=== PATIENT | male | born 1935 | race Caucasian/White ===

== ENCOUNTER 2016-12-03 11:38 | Day surgery (SDC) | payer BC ==
[2016-12-03 12:19] LABS: BASO % 0.3 % (0-6); EOS % 1.8 % (0-6); GRAN % 71.2 % (47-80); HEMOGLOBIN 15.4 gm/dl (14.0-18.0); LYMPH % 17.5 % (16-45); MEAN CELL VOLUME 94.8 fl (81-97); MEAN CORPUSCULAR HEMOGLOBIN 31.8 pg (27-33); MEAN CORPUSCULAR HGB CONC 33.5 g/dl (32-36); MEAN PLATELET VOLUME 11.2 fl (7.4-10.4); MONO % 9.2 % (0-9); PLATELET COUNT 205 K/uL (130-400); RED BLOOD COUNT 4.85 M/uL (4.40-5.70); RED CELL DISTRIBUTION WIDTH 13.3 % (11.5-14.5); WHITE BLOOD COUNT W/O DIFF 7.2 K/uL (4.2-12.2)
[2016-12-03 12:37] LABS: ALB/GLOB RATIO 1.3 (1.1-1.8); ALBUMIN 3.8 g/dL (4.0-5.0); ALKALINE PHOSPHATASE 69 U/L (40-129); ALT/SGPT 26 U/L (<41); AST/SGOT 22 U/L (10.0-50.0); BLOOD UREA NITROGEN 14 mg/dL (8-23); EST GLOMERULAR FILTRATION RATE > 60 mL/min; GLUCOSE,RANDOM 118 mg/dL (74-109); TOTAL PROTEIN 6.7 g/dL (6.6-8.7)
[2016-12-03] MEDS ORDERED: PROPOFOL 10 MG/ML VIAL IV ONE (15:48)
[2016-12-03] MEDS ORDERED: LIDOCAINE 2% MDV (20MG/ML) 20ML VIAL IV ONE (15:48)
--- NOTE | 2016-12-04 15:02 | Operative Note ---
DATE OF PROCEDURE: 12/03/16 PRIMARY CARE PHYSICIAN: DR. NEREIDA FRITZ OPERATING PHYSICIAN: CLIFTON GARCIA M.D. INDICATIONS: PAROXYSMAL ATRIAL FIBRILLATION. PROCEDURE DESCRIPTION: Mr. Ascencio was brought into the Cardioversion Room in a fasting state. The defibrillation pads were applied in the anteroposterior position. Anesthesia was administered and a synchronized direct current of 100 joules of biphasic energy was used, which was successful in cardioverting him into an atrial paced rhythm. IMPRESSION: SUCCESSFUL DIRECT CURRENT CARDIOVERSION WITH 100 JOULES OF BIPHASIC ENERGY. JOB NUMBER: [id number] MTDD
== END 2016-12-03 14:15 | disposition home or self-care (01) ==
LOC: SUR 11:38
PROVIDERS: ATTEND Internal Medicine
DX: I48.0 Paroxysmal atrial fibrillation (principal); I50.9 Heart failure, unspecified; I10 Essential (primary) hypertension; Z95.0 Presence of cardiac pacemaker; E78.00 Pure hypercholesterolemia, unspecified; Z79.01 Long term (current) use of anticoagulants; Z87.891 Personal history of nicotine dependence
CPT/HCPCS: 80053; 85025; 93005

== ENCOUNTER 2017-01-14 11:20 | Day surgery (SDC) | payer BC ==
[2017-01-14] MEDS ORDERED: PROPOFOL 10 MG/ML VIAL IV ONE (11:21)
[2017-01-14] MEDS ORDERED: LIDOCAINE 2% MDV (20MG/ML) 20ML VIAL IV ONE (11:21)
--- NOTE | 2017-01-15 15:41 | Operative Note ---
DATE OF PROCEDURE: 01/14/17 INDICATION: ATYPICAL ATRIAL FLUTTER. OPERATING PHYSICIAN: CLIFTON GARCIA M.D. Pacemaker interrogation and adjustment was also performed. PROCEDURE DESCRIPTION: Mr. Ascencio was brought into the Cardioversion Room in a fasting state. Anesthesia was administered by MANNIE Dickerson and initially we tried to atrially pace the patient to take him out of the atrial flutter, however, that was not successful and then we tried synchronized cardioversion with 50 joules of biphasic energy, which was successful in the first attempt. We increased the atrial rate to 75 beats per minute and pacemaker interrogation confirmed the patient to be out of atrial flutter and he is currently in atrial paced pacing mode. IMPRESSION: SUCCESSFUL DIRECT CURRENT SUPPORTED CARDIOVERSION WITH 50 JOULES OF SYNCHRONIZED ENERGY. THIS WAS SUCCESSFUL IN THE FIRST ATTEMPT. JOB NUMBER: [id number] MTDD
== END 2017-01-14 14:20 | disposition home or self-care (01) ==
LOC: SUR 11:20
PROVIDERS: ATTEND Internal Medicine
DX: I48.0 Paroxysmal atrial fibrillation (principal); I10 Essential (primary) hypertension; Z95.0 Presence of cardiac pacemaker; E78.5 Hyperlipidemia, unspecified
CPT/HCPCS: 93005; 93010

== ENCOUNTER 2018-01-13 11:48 | Day surgery (SDC) | payer BC ==
[2018-01-13 13:08] LABS: BASO % 0.4 % (0-6); GRAN % 66.1 % (47-80); HEMATOCRIT 44.3 % (42.0-52.0); HEMOGLOBIN 14.7 gm/dl (14.0-18.0); LYMPH % 18.3 % (16-45); MEAN CELL VOLUME 96.3 fl (81-97); MEAN CORPUSCULAR HGB CONC 33.2 g/dl (32-36); MEAN PLATELET VOLUME 11.2 fl (7.4-10.4); MONO % 12.2 % (0-9); PLATELET COUNT 208 K/uL (130-400); RED CELL DISTRIBUTION WIDTH 13.6 % (11.5-14.5); WHITE BLOOD COUNT W/O DIFF 5.6 K/uL (4.2-12.2)
[2018-01-13 13:23] LABS: ALB/GLOB RATIO 1.4 (1.1-1.8); ALBUMIN 3.8 g/dL (4.0-5.0); ALKALINE PHOSPHATASE 77 U/L (40-129); ALT/SGPT 36 U/L (<41); AST/SGOT 33 U/L (10.0-50.0); BLOOD UREA NITROGEN 17 mg/dL (8-23); CREATININE 1.2 mg/dL (0.7-1.2); EST GLOMERULAR FILTRATION RATE > 60 mL/min; GLUCOSE,RANDOM 119 mg/dL (74-109); TOTAL PROTEIN 6.6 g/dL (6.6-8.7)
== END 2018-01-13 12:50 | disposition home or self-care (01) ==
LOC: SUR 11:48
PROVIDERS: ATTEND Internal Medicine
DX: Z53.9 Procedure and treatment not carried out, unspecified reason (principal)
CPT/HCPCS: 80053; 85025; 93005